=== PATIENT | male | born 1975 | race Caucasian/White ===

== ENCOUNTER → 2023-12-08 11:01 | Outpatient (REF) | payer BC, SELFPAY | LOC: DHCBC/DCA 11:01 | PROVIDERS: ATTENDING PHYSICIAN Nurse Practitioner Family | DX: R07.89 Other chest pain (principal); R06.09 Other forms of dyspnea; E78.2 Mixed hyperlipidemia; E11.9 Type 2 diabetes mellitus without complications | CPT/HCPCS: 78452; 93017; A9500; J2785 ==

== ENCOUNTER → 2023-12-14 10:34 | Outpatient (REF) | payer BC, SELFPAY ==
[2023-12-14 11:44] LABS: % Basophils 1.2 % (0-2); % Eosinophils 4.7 % (0-6); % Immature Granulocytes 0.2 % (0-0.5); % Lymphocytes 31.4 % (20.5-51.1); % Monocytes 9.1 % (1.7-9.3); % Neutrophils 53.4 % (42.2-75.2); Absolute Basophils 0.1 10^3/uL (0-0.2); Absolute Eosinophils 0.3 10^3/uL (0-0.7); Absolute Lymphocytes 1.8 10^3/uL (1.2-3.4); Absolute Monocytes 0.5 10^3/uL (0.1-0.6); Absolute Neutrophils 3.1 10^3/uL (1.4-6.5); Hematocrit 45.2 % (39.0-52.0); Hemoglobin 15.4 g/dL (13.0-18.0); Mean Corp Hgb Conc. 34.1 g/dL (33.0-37.0); Mean Corpuscular Hgb 29.7 pg (27.0-31.0); Mean Corpuscular Volume 87.3 fL (80.0-94.0); Mean Platelet Volume 11.5 fL (7.4-10.4); Nucleated Red Blood Cells % 0 % (-); Platelet Count 278 10^3/uL (130-400); Red Blood Cell Count 5.18 10^6/uL (4.70-6.10); Red Cell Dist. Width 12.5 % (11.5-14.5); White Blood Cell Count 5.8 10^3/uL (4.8-10.8)
[2023-12-14 12:11] LABS: Glycohemoglobin (HgbA1c) 6.8 % (4.0-5.6)
[2023-12-14 12:15] LABS: Urine Protein < 5 mg/dl
[2023-12-14 12:18] LABS: ALT (SGPT) 38 U/L (0-50); AST (SGOT) 36 U/L (17-59); Albumin 4.3 g/dl (3.5-5.0); Alkaline Phosphatase 80 U/L (38-126); Blood Urea Nitrogen 19 mg/dl (9-20); Calcium 10.1 mg/dl (8.4-10.2); Carbon Dioxide 23 mmol/L (22-30); Chloride 108 mmol/L (98-107); Glucose 139 mg/dl (70-99); HDL Cholesterol 43 mg/dl; LDL Cholesterol, Calculated 102 mg/dl; Potassium 4.7 mmol/L (3.5-5.1); Sodium 141 mmol/L (135-145); Total Bilirubin 0.6 mg/dl (0.2-1.3); Total Cholesterol 178 mg/dl (50-199); Triglyceride 169 mg/dl (10-149); Very Low Density Lipoprotein 33 mg/dl (0-30); eGFR > 60.00
[2023-12-14 12:31] LABS: CRP, Highly Sensitive 1.45 mg/L
[2023-12-14 12:47] LABS: TSH Reflex To Free T4 1.33 uIU/ml (0.47-4.68)
== END ==
LOC: REG 10:34
PROVIDERS: ATTENDING PHYSICIAN Nurse Practitioner Family
DX: E11.9 Type 2 diabetes mellitus without complications (principal); R07.89 Other chest pain; R06.09 Other forms of dyspnea; E78.2 Mixed hyperlipidemia; E66.01 Morbid (severe) obesity due to excess calories; E11.42 Type 2 diabetes mellitus with diabetic polyneuropathy
CPT/HCPCS: 36415; 80053; 80061; 82570; 83036; 84156; 84443; 85025; 86141

== ENCOUNTER 2023-12-17 16:03 | Day surgery (SDC) | payer BC, SELFPAY ==
[2023-12-17] VITALS (13 sets, daily range): BP systolic 118–170; BP diastolic 70–92; BMI 33.5
[2023-12-17 12:18] LABS: % Eosinophils 3.7 % (0-6); % Immature Granulocytes 0.3 % (0-0.5); % Lymphocytes 28.4 % (20.5-51.1); % Monocytes 8.8 % (1.7-9.3); % Neutrophils 57.8 % (42.2-75.2); Absolute Basophils 0.1 10^3/uL (0-0.2); Absolute Eosinophils 0.2 10^3/uL (0-0.7); Absolute Lymphocytes 1.7 10^3/uL (1.2-3.4); Absolute Monocytes 0.5 10^3/uL (0.1-0.6); Absolute Neutrophils 3.5 10^3/uL (1.4-6.5); Hematocrit 44.4 % (39.0-52.0); Mean Corp Hgb Conc. 33.8 g/dL (33.0-37.0); Mean Corpuscular Hgb 29.8 pg (27.0-31.0); Mean Corpuscular Volume 88.1 fL (80.0-94.0); Mean Platelet Volume 10.9 fL (7.4-10.4); Nucleated Red Blood Cells % 0 % (-); Platelet Count 279 10^3/uL (130-400); Red Blood Cell Count 5.04 10^6/uL (4.70-6.10); Red Cell Dist. Width 12.3 % (11.5-14.5)
[2023-12-17 12:33] LABS: ALT (SGPT) 45 U/L (0-50); AST (SGOT) 34 U/L (17-59); Albumin 4.1 g/dl (3.5-5.0); Alkaline Phosphatase 75 U/L (38-126); Blood Urea Nitrogen 20 mg/dl (9-20); Calcium 9.9 mg/dl (8.4-10.2); Carbon Dioxide 22 mmol/L (22-30); Chloride 109 mmol/L (98-107); Estimated Creatinine Clearance > 125 ml/min; Glucose 139 mg/dl (70-99); Potassium 4.4 mmol/L (3.5-5.1); Sodium 140 mmol/L (135-145); Total Bilirubin 0.7 mg/dl (0.2-1.3); Total Protein 6.7 g/dl (6.3-8.2); eGFR > 60.00
[2023-12-17] MEDS: LOW STRENGTH ASPIRIN 324 MG PO (12:42)
[2023-12-17 12:48] LABS: Troponin I < 0.012 ng/ml
--- NOTE | 2023-12-17 12:56 | ED.GENMED ---
History of Present Illness
General
Chief Complaint: Chest Pain
Source: patient
Exam Limitations: none
Time Seen by Provider: 12/17/23 11:57
Nursing documentation reviewed up to this point in time: agreed with
Travel History
Have you had any contact with someone who has COVID-19?: No
Do you have any symptoms of coronavirus? Fever > 100 degrees, chills, cough, shortness of breath, sore throat, loss of taste or smell, muscle aches, or headache?: No
History of Present Illness
History of Present Illness:
48 y/o M with h/ oHTN, HLD, ANXIETY, GERD
has had ongoign episodes of ches tpain
had stress test 12/07 and doesn't really understand the result
pt has not f/u with cards
woke up with worse left sided ches tpressure than usual with left arm tingling
feels slightly worse with deep breathing
midl sob
no nausea, vomiting, fever, chills, cough, leg swelling
Past History
Past History
ED Past Medical History: HTN, Psychiatric (Depression) and Other (Diverticulosis, Over active bladder syndrome)
ED Past Surgical History: Other ( endoscopy, colonoscopy)
Social History
Tobacco: Former smoker
Alcohol: None
Drug: None
Personal: Single
Living: with family
Employment: Employed
Review of Systems
Review of Systems
Allergies reviewed?: Yes
All Other Systems: Not applicable
Phy Exam
Physical Exam
Physical Exam:
GENERAL: Alert , in no apparent distress
EYE: pupils equal and reactive
NECK: Supple
ENT: o/p clr, mmm.
CARDIAC: Regular rate and rhythm .
LUNGS: Clear breath sounds bilaterally, no acute respiratory distress, no wheezes/rales/rhonchi
ABDOMEN: Soft, without focal tenderness, no r/g, no cvat, normal bowel sounds
NEUROLOGICAL: Alert and oriented, no focal neuro deficits
SKIN: Warm and dry, skin intact.
MUSCULOSKELETAL: No edema, well perfused. neg jeni's sign
PSYCH: Normal and appropriate interaction.
Scores
Heart Score for Chest Pain Patients
STEMI patient?: No
History: Moderately Suspicious
ECG: Nonspecific Repolarization
Age: </= 45 years
Risk Factors: 1 or 2 Risk Factors
Troponin: </= Normal Limit
Heart Score for Chest Pain Patients: 3
Heart Score Risk: 2.5% MACE over next 6 weeks
Course
Orders/Labs/Results
Orders:
Orders
12/17/23 Lunch
Cholesterol Lowering
At Your Request: Full Participation
Cholesterol Lowering: Sodium, 2 Gram
12/17/23 11:08
ECG [Electrocardiogram (*1)] Urgent
Reason for Study: Chest Pain
EKG- Treatment ONCE
12/17/23 12:07
Complete Blood Count/With Diff Urgent
Troponin I Urgent
12/17/23 12:08
Comprehensive Metabolic Panel Urgent
12/17/23 12:13
Aspirin Chewable [Low Strength Aspirin] 324 mg PO NOW STA
12/17/23 12:45
D-Dimer Urgent
12/17/23 14:18
Echo 2D MMode Color/Doppler Routine
Reason for Study: Chest pain
12/17/23 14:27
Nitroglycerin Sublingual [Nitrostat (Sublingual)] 0.4 mg SL NOW STA
Nitroglycerin Sublingual [Nitrostat (Sublingual)] 0.4 mg SL [id number] PRN
12/17/23 14:49
Famotidine [Pepcid] 20 mg IV NOW STA
MethylPREDNISolone PF [Solu-Medrol Pf] 125 mg IV NOW STA
12/17/23 14:53
0.9% Sodium Chloride [Nss (Preservative Free)] 8 ml IV NOW STA
12/17/23 15:07
Fentanyl Citrate/Pf [Sublimaze] 100 mcg .ROUTE .STK-MED ONE
Heparin 10,000 units .ROUTE .STK-MED ONE
Heparin 1000 Units/500 ml [Heparin] 1,000 units in 500 ml .ROUTE .STK-MED
Heparin Sodium,Porcine/Ns/Pf [Heparin 2000 Units/1000 ml] 2,000 unit in 1,000 ml .ROUTE .STK-MED
Lidocaine HCl/Pf [Xylocaine-Mpf 1% Vial] 50 mg .ROUTE .STK-MED ONE
Midazolam HCl [Versed] 2 mg .ROUTE .STK-MED ONE
Verapamil Injectable [Isoptin/Verapamil Injection] 5 mg .ROUTE .STK-MED ONE
12/17/23 15:08
Nitroglycerin [Tridil] 1,500 mcg .ROUTE .STK-MED ONE
12/17/23 15:19
Diphenhydramine [Benadryl] 50 mg .ROUTE .STK-MED ONE
Hydrocortisone Sod Succ [Solu-Cortef] 250 mg .ROUTE .STK-MED ONE
12/17/23 15:59
Acetaminophen [Tylenol] 650 mg PO Q4HPRN PRN
12/17/23 16:00
0.9% Sodium Chloride 1000 ml [Nss] 1,000 ml IV PER PROTOCOL
Infusion rate in mL/kg/hr:: 1.5
Infusion rate in mL/hr:: 187
Duration of infusion (hours):: 3
Activity As Directed
Activity Level: Out of Bed- Ad Fadumo
Activity Frequency: Ad Fadumo
Passenger Vessel Chef Procedure As Directed
Cardiac Cath Procedure: cardiac catheterization
Notify MD As Directed
Notify physician if: immediately for chest pain or bleeding from access site(s)
Radial Artery Hemostasis Method As Directed
Instructions:: 3 mL out at 1 hour post placement of band
3 mL out at 1 1/2 hours post placement of band
3 mL out at 2 hours post placement of band
Off at 2 1/2 hours post placement of band
If any oozing or hemotoma occurs:: re-inflate band and call provider
Site Checks As Directed
Check access site for bleeding/hematoma: Yes
Comment: on arrival, Q15min x4, Q30min x2, Q1 hr x2, Q2 hr x2, Q4 hr or per
protocol
Vascular Checks As Directed
Location: distal to access site - pulse check
Frequency: Other
Comment: on arrival, Q15min x4, Q30min x2, Q1 hr x2, Q2 hr x2, Q4 hr or per protocol
Vital Signs As Directed
Frequency: Other
Additional Instructions:: on arrival, Q15min x4, Q30min x2, Q1 hr x2, Q2 hr x2, then Q4 hr or per unit
protocol
12/17/23 16:02
VTE Contraindication Routine
VTE Mechanical Device Contraindication: Low Risk- LOS < 2 days
Pharmocologic Contraindication: Low Risk- LOS < 2 days
Risk assessment completed and pt is low risk: Yes
12/17/23 16:20
Discharge Patient As Directed
Discharge patient after: 7pm if rad site stable
12/17/23 16:30
Losartan [Cozaar] 100 mg PO NOW STA
Pantoprazole [Protonix] 40 mg PO NOW STA
12/17/23 17:00
Amlodipine [Norvasc] 2.5 mg PO DAILY
Escitalopram Oxalate [Lexapro] 10 mg PO DAILY
12/18/23 06:00
Basic Metabolic Panel IN AM
Complete Blood Count/No Diff IN AM
Abnormal Lab Results
12/17/23 12/17/23
12:07 12:08
MPV 10.9 H fL
(7.4-10.4)
Chloride 109 H mmol/L
(98-107)
Creatinine 0.6 L mg/dL
(0.7-1.3)
Glucose 139 H mg/dl
(70-99)
12/17/23 12:07
12/17/23 12:08
Vital Signs
Initial and Last Documented VS:
Initial Vital Signs
Pulse Resp BP Pulse Ox
49 18 155/87 98
12/17/23 11:08 12/17/23 11:08 12/17/23 11:08 12/17/23 11:08
Last Documented Vital Signs
Temp Pulse Resp BP Pulse Ox
98.1 F 72 16 139/76 96
12/17/23 19:46 12/17/23 19:45 12/17/23 19:46 12/17/23 19:12 12/17/23 19:46
MDM/Problems Addressed
Differential Diagnosis Includes:
GERD, acs, unstable agina
MDM/Problems Addressed:
48 y/o M with h/o HTN, HLD, gerd, anxiety
pt has had episodes of chest pain and was referred to cardiology after having a stress test on 12/07 bu thasn't been able to schedule an appointment
has had episodes of chest pain but wasn't sure if anxiety and that's why he ended up having stress test
pt woke up 930 am with worsening left ches tpain and L hand tingling which he doesn't normally have; not pleuritic, not exertional
ekg is sinus haja 40s which is typical for him, no st chagnes
trop was < 0.012
d/w head waiter contracts intern who will take pt to labor service representative
they aked he be admitted to hospitalist
*Critical Care Note
Total Time (30-74mins, 75-104mins- exclusive of procedures): Not Applicable
ED Attending Note
-
Portions of this chart may have been created with voice recognition software.� Occasional wrong word or��sound alike� substitutions may have occurred due to the inherent limitations of voice recognition software.
Discharge Plan
Departure
Patient Disposition: Admit
Date of Disposition: 12/17/23
Time of Disposition: 14:27
Admit to: Telemetry
Presentation/result/management discussed w/ accepting MD/DO: Hospitalist
Condition: Fair
Discharge Problem:
Chest pain
Interventions
Interventions:
*Risk Screen - Suicide Last Done: 12/17/23 11:12
*General Assessment Last Done: 12/17/23 12:03
*Neglect/Abuse Screening Last Done: 12/17/23 12:03
ED- Fall Risk Assessment Last Done: 12/17/23 12:03
*ED COVID-19 Vaccine History Last Done: 12/17/23 11:12
*Nursing Disposition Last Done: 12/17/23 15:58
ED- Cardiac Assessment Last Done: 12/17/23 12:03
Discharge Date and Time
Discharge Date/Time: 12/17/23 14:30
[2023-12-17 13:35] LABS: D-Dimer < 0.27 ug/mlFEU (0.00-0.50)
--- NOTE | 2023-12-17 14:16 | CON.CAR ---
Addendum entered and electronically signed by Aneesh Coelho MD 12/17/23 16:38:
I saw and examined the patient.
The OCCUPATIONAL THERAPY SPECIALIST's note was reviewed and I agree with the note.
Comment: 48-year-old who is coming in with accelerated angina. He tells us that over the last 2 weeks he was having typical anginal symptoms with chest tightness upon exertion relieved with rest. However this morning and yesterday it was happening
at shorter distances and this morning he even woke up with chest pain. He has been taking aspirin with some relief.
-Customs Compliance Specialist
-Risk factor modification
Original Note:
Consultation
Consultation Request
Date/Time Consultation Requested: 12/17/2023 13:50
Date/Time Consultation Performed: 12/17/2023 14:55
Requesting Provider: DAJUAN Marcelo
Performing Provider: DAJUAN Ibarra for Dr. Coelho
Reason for Consultation: Chest pain
Medical History
-
Chief Complaint: Chest pain
History of Present Illness:
Patient is a 48-year-old male (formerly known to Dr. Lyons), with bradycardia, dyslipidemia, type 2 diabetes mellitus, hypertension, and recent abnormal stress test who presented to the emergency department with a chief complaint of chest pain.
He recently had abnormal stress testing which was prompted by profuse diaphoresis and chest pressure while on his usual 2 mile walk. He also endorsed feeling very unwell. The symptoms would resolve with rest. This morning at approximately 9:30 AM
chest heaviness woke him up from his sleep. At that time was 6/10 in severity. The pressure radiated down his left arm and into his hand. He endorses left hand numbness. It is currently 4/10 in severity. It is midsternal and anterior not
currently radiating.
Past Medical History
Past Medical History: HTN, Hypercholesterolemia and NIDDM
Social History
Tobacco: Former Smoker
Alcohol: None (No EtOH since having issues with chest pressure.)
Drug: None
Personal: Single
Living: With Family
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
Family History
Family History: Early CAD (Father currently with CAD in his 50s.) and Other (Mother due to liver cancer.)
Allergies / Home Medications
Allergy/AdvReac Type Severity Reaction Status Date / Time
bee venom protein (honey bee) Allergy Swelling Verified 08/21/20 15:04
iodine Allergy sneezing Verified 08/21/20 15:04
with cat
scan dye
[id number] - Not Allergy Unknown Unknown Uncoded 08/21/20 15:04
Converted 93. See Text.
�Medication �Instructions �Recorded �Confirmed �Type
escitalopram oxalate 10 mg tablet 10 mg PO DAILY 01/29/19 01/29/19 History
losartan 50 mg tablet 100 mg PO DAILY 01/29/19 01/29/19 History
oxybutynin chloride 10 mg 15 mg PO DAILY 01/29/19 01/29/19 History
tablet,extended release 24 hr
(Ditropan XL)
Review of Systems
-
History Source: Patient
All other systems: Negative unless noted
Respiratory: No Symptoms
Cardiac: Chest Pain
Abdomen/GI: No Symptoms
Physical Exam
Vital Signs
Temp Pulse Resp BP Pulse Ox
98.3 F 55 20 133/80 95
12/17/23 11:15 12/17/23 13:30 12/17/23 13:30 12/17/23 13:00 12/17/23 13:15
Lab Results
12/17/23 12:07
12/17/23 12:08
Troponin I < 0.012 ng/ml 12/17/23 12:07
Physical Exam
General: Well Developed, Well Nourished, No Apparent Distress and Comfortable
HEENT: Normocephalic, Anicteric and Moist Mucous Membranes
Respiratory: Clear
Cardiac: S1/S2 and Regular Rhythm; Negative Peripheral Edema
Breast: Deferred by me
GI: Soft, Non Tender, Non Distended and Normal Bowel Sounds
Rectal: Deferred by Provider
Genito-urinary: No Costovertebral Tender
Musculoskeletal: No Clubbing, No Cyanosis and No Edema
Skin: Warm and Dry
Neuro: AO x 3
Hematologic/Lymphatic: No Lymphadenopathy
Psych: Calm
Impression / Plan
-
Accelerating angina
-Currently having 4/10 chest pain, sublingual nitro ordered
-Troponin <0.012
-He received ASA 324 mg in the ER
-Recent stress testing (12/08/2023) with reversible defect in basal anterior, mid anterior, apical anterior, and apex segments consistent with ischemia with small degree of infarct versus ischemia
-N.p.o., cardiac catheterization today
-Echocardiogram
Bradycardia, chronic, stable, follow telemetry
HTN, stable, his PCP recently added amlodipine 2.5 mg to his losartan 100 mg daily
Dyslipidemia
-12/14/2023 TC 178, HDL 43, LDL 102, TG 169 -> rosuvastatin increased to 20mg daily
NIDDM, Hgba1c 6.4%, per primary
Fatty liver disease
Former smoker, continued cessation recommended
Data Reviewed
-
EKG: Report Reviewed by me (Sinus bradycardia, intraventricular conduction delay, rate 43)
Medical Tests (Nuc Med, Echo etc): Report Reviewed by me (Stress test as above)
Labs: Labs Reviewed by me
Old Records: Reviewed (Outpatient PCP note)
--- NOTE | 2023-12-17 15:57 | ITS.CL.CATH ---
Diesel Technology Instructor - Catheterization
Cardiac Catheterization
Procedure Report:
CARDIAC CATHETERIZATION REPORT
Date of Procedure: 12/17/2023
Referring: Aneesh Coelho M.D.
INDICATION: Abnormal stress test, resting chest pain.
PROCEDURE:
1. Left heart catheterization.
2. Coronary angiography.
ACCESS:
6 [place] right radial artery.
CATHETERS:
1. 5 [place] JR4.
2. 5 [place] JL 3.5.
Believe
HEMODYNAMIC DATA
Weight (kg): 124.3
AO (s/d/x, mmHg): 136/82/106
LV (s/x mmHg): 140/15
LEFT VENTRICULOGRAPHY: Not performed.
CORONARY ANGIOGRAPHY
Dominance: Right.
Left Main: Normal size, bifurcating vessel. There is no coronary artery disease.
LAD: Normal size vessel giving rise to 2 significant diagonals. There are minor luminal irregularities.
Ramus: Congenitally absent.
Circumflex: Large size, nondominant vessel giving rise to 1 significant obtuse marginal. There is no coronary artery disease.
RCA: Normal size, dominant vessel. There is no coronary artery disease.
INTERVENTION(S)
None.
Closure Device: Vascular band.
Radiation (mGy): 615.01
DAP (cm2.Gy): 50.7179
Fluoroscopy time (minutes): 2.9
Sedation time (minutes): 23
CONCLUSIONS
1. Right dominant circulation with minor luminal irregularities in the LAD.
2. Top normal filling pressures (LVEDP = 15 mmHg at 124.3 kg).
RECOMMENDATIONS:
1. Expectant management after cardiac catheterization via right radial approach.
2. Limited weight bearing on the right wrist for one week.
3. Continue evaluation for other sources of chest pain including endothelial dysfunction versus esophageal spasm/GERD.
4. 2-week trial of PPI.
5. Stable for outpatient follow-up.
Copy to: Aneesh Coelho M.D., Luis Fernando Martinez D.O.
Jaylen Ballard DO, FACC, FACP
--- NOTE | 2023-12-17 16:27 | PTCARENOTE ---
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 patient is concerned that he is still having pain. patient did not take any of his home medications today. monitor shows sinus haja, VSS. right R band intact, distal pulse
weak but palpable. TT Jillian Gan NP.aware of CP.
--- NOTE | 2023-12-17 16:46 | PTCARENOTE ---
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
[2023-12-17] MEDS: COZAAR 100 MG PO (16:52)
[2023-12-17] MEDS: PROTONIX 40 MG PO (16:52)
[2023-12-17] MEDS: NORVASC 2.5 MG PO (16:52)
[2023-12-17] MEDS: LEXAPRO 10 MG PO (16:52)
[2023-12-17] MEDS: PEPCID 20 MG IV (16:54)
[2023-12-17] MEDS: NITROSTAT (SUBLINGUAL) 0.400000000000000022 MG SL (16:54)
[2023-12-17] MEDS: SOLU-MEDROL PF 125 MG IV (16:54)
[2023-12-17] MEDS: NSS (PRESERVATIVE FREE) 8 ML IV (16:54)
--- NOTE | 2023-12-17 16:56 | W.DS.TRANS ---
DC Summary - Tool Procurement Coordinator
-
Discharge Instructions:
Discharge Diagnosis/Procedures Cardiac cath
Diet Low Cholesterol
Driving Restrictions No driving for 24 hours
Instructions:
Stand-Alone Forms: DC Instructions- Cath/EP Lab
Return to Work
Changes to Home Medications: Yes
Discharge Medications:
DC Medications w/original date entered in [employer]
escitalopram oxalate 10 mg tablet 10 mg PO DAILY 01/29/19
losartan 50 mg tablet 100 mg PO DAILY 01/29/19
oxybutynin chloride 10 mg tablet,extended release 24 hr (Ditropan XL) 15 mg PO DAILY 01/29/19
amlodipine 2.5 mg tablet 2.5 mg PO DAILY #1 tab 12/17/23
metformin 1,000 mg tablet 1,000 mg PO HS 12/17/23
pantoprazole 40 mg tablet,delayed release (Protonix) 40 mg PO DAILY #30 tabs 12/17/23
rosuvastatin 10 mg tablet 10 mg PO DAILY 12/17/23
Home Medication Changes
new to protonix
Pending Results: Yes
Additional Pending Results:
echo final read
--- NOTE | 2023-12-17 17:51 | PTCARENOTE ---
patient has received all his medication as ordered ,mother is at bedside, patient stating that the discomfort in chest is a 3 out of 10,nonradiating. patient stated, 'I feel calmer'. patient is eating dinner.
--- NOTE | 2023-12-17 21:37 | PTCARENOTE ---
Late note: SR on the monitor in the 70's. Stated his chest discomfort is a #2 when questioned. vss. Received all discharge instructions and verbalized understanding. INT's removed with jelco intact. All questions answered. Patient discharged via w/c
and staff escort to the care of a family member.
== END 2023-12-17 20:00 | disposition home or self-care (01) ==
LOC: CATH 16:03
PROVIDERS: Physician Assistant; ATTENDING PHYSICIAN Internal Medicine Cardiovascular Disease; EMERGENCY PHYSICIAN Emergency Medicine; FAMILY PHYSICIAN Internal Medicine
DX: R07.9 Chest pain, unspecified (principal); R94.39 Abnormal result of other cardiovascular function study; I10 Essential (primary) hypertension; E78.00 Pure hypercholesterolemia, unspecified; K21.9 Gastro-esophageal reflux disease without esophagitis; E11.9 Type 2 diabetes mellitus without complications; F41.9 Anxiety disorder, unspecified; Z87.891 Personal history of nicotine dependence; Z79.84 Long term (current) use of oral hypoglycemic drugs
CPT/HCPCS: 80053; 84484; 85025; 85379; 93005; 93306; 93458; 96374; 99285; C1894

== ENCOUNTER → 2024-01-13 11:06 | Outpatient (REF) | payer BC, SELFPAY ==
[2024-01-13 14:05] LABS: Urine Albumin Negative (Neg - Trace); Urine Bilirubin Negative (Negative); Urine Character Clear (Clear); Urine Color Yellow; Urine Glucose Negative (Negative); Urine Ketone Negative (Negative); Urine Leukocyte Negative (Negative); Urine Nitrite Negative (Negative); Urine Occult Blood Negative (Negative); Urine Specific Gravity 1.025 (<1.030); Urine Urobilinogen Negative (Neg - 1+)
== END ==
LOC: REG 11:06
PROVIDERS: ATTENDING PHYSICIAN Specialist
DX: N39.0 Urinary tract infection, site not specified (principal)
CPT/HCPCS: 81003; 87086

== ENCOUNTER → 2024-02-05 09:23 | Outpatient (REF) | payer BC, SELFPAY | LOC: DHSLP 09:23 | PROVIDERS: ATTENDING PHYSICIAN Internal Medicine | DX: G47.33 Obstructive sleep apnea (adult) (pediatric) (principal); G47.31 Primary central sleep apnea; G47.61 Periodic limb movement disorder; G47.00 Insomnia, unspecified | CPT/HCPCS: 95810 ==

== ENCOUNTER → 2024-03-10 12:42 | Outpatient (REF) | payer BC, SELFPAY | LOC: CLAB 12:42 | PROVIDERS: ATTENDING PHYSICIAN Specialist | DX: N39.0 Urinary tract infection, site not specified (principal) | CPT/HCPCS: 87070; 87086 ==

== ENCOUNTER 2024-04-19 06:34 | Outpatient (RCR) | payer BC, SELFPAY | END 2024-04-19 23:59 | disposition home or self-care (01) | LOC: RPT 06:34 | PROVIDERS: ATTENDING PHYSICIAN Specialist; FAMILY PHYSICIAN Internal Medicine | DX: R10.2 Pelvic and perineal pain (principal); R35.0 Frequency of micturition; R39.15 Urgency of urination; Z73.6 Limitation of activities due to disability; N32.81 Overactive bladder | CPT/HCPCS: 36415; 80053; 80061; 81003; 83036; 84153; 85025; 97110; 97161; 97530 ==

== ENCOUNTER 2024-05-26 09:59 | Outpatient (RCR) | payer BC, SELFPAY | END 2024-05-26 23:59 | disposition home or self-care (01) | LOC: RPT 09:59 | PROVIDERS: ATTENDING PHYSICIAN Specialist; FAMILY PHYSICIAN Internal Medicine | DX: R35.0 Frequency of micturition (principal); R39.15 Urgency of urination; R10.2 Pelvic and perineal pain; Z73.6 Limitation of activities due to disability | CPT/HCPCS: 97110 ==

== ENCOUNTER 2024-09-26 16:11 | Outpatient (RCR) | payer BC, SELFPAY | END 2024-09-26 23:59 | disposition home or self-care (01) | LOC: RPT 16:11 | PROVIDERS: ATTENDING PHYSICIAN Specialist; FAMILY PHYSICIAN Internal Medicine | DX: R35.0 Frequency of micturition (principal); R39.15 Urgency of urination; R10.2 Pelvic and perineal pain; Z73.6 Limitation of activities due to disability; M62.81 Muscle weakness (generalized) | CPT/HCPCS: 97110; 97530 ==

== ENCOUNTER 2024-10-11 11:20 | Emergency (ER) | payer BC, SELFPAY ==
[2024-10-11 11:24] VITALS: BP 159/86
[2024-10-11 11:48] LABS: % Basophils 1.1 % (0-2); % Eosinophils 3.2 % (0-6); % Immature Granulocytes 0.4 % (0-0.5); % Lymphocytes 28.6 % (20.5-51.1); % Neutrophils 58.7 % (42.2-75.2); Absolute Basophils 0.1 10^3/uL (0-0.2); Absolute Eosinophils 0.2 10^3/uL (0-0.7); Absolute Lymphocytes 1.6 10^3/uL (1.2-3.4); Absolute Monocytes 0.5 10^3/uL (0.1-0.6); Absolute Neutrophils 3.3 10^3/uL (1.4-6.5); Hematocrit 43.2 % (39.0-52.0); Hemoglobin 15.1 g/dL (13.0-18.0); Mean Corpuscular Volume 85.7 fL (80.0-94.0); Mean Platelet Volume 10.4 fL (7.4-10.4); Nucleated Red Blood Cells % 0 % (-); Platelet Count 293 10^3/uL (130-400); Red Blood Cell Count 5.04 10^6/uL (4.70-6.10); Red Cell Dist. Width 12.3 % (11.5-14.5); White Blood Cell Count 5.7 10^3/uL (4.8-10.8)
[2024-10-11 11:54] VITALS: BP 142/80
[2024-10-11 12:00] VITALS: BP 146/81
[2024-10-11 12:03] LABS: ALT (SGPT) 45 U/L (0-50); AST (SGOT) 30 U/L (17-59); Alkaline Phosphatase 93 U/L (38-126); Blood Urea Nitrogen 14 mg/dl (9-20); Calcium 9.9 mg/dl (8.4-10.2); Carbon Dioxide 21 mmol/L (22-30); Chloride 108 mmol/L (98-107); Glucose 215 mg/dl (70-99); Potassium 4.4 mmol/L (3.5-5.1); Sodium 136 mmol/L (135-145); Total Bilirubin 0.5 mg/dl (0.2-1.3); Total Protein 6.7 g/dl (6.3-8.2); eGFR > 60.00
[2024-10-11 12:14] LABS: Troponin I < 0.012 ng/ml
--- NOTE | 2024-10-11 12:26 | ED.GENMED ---
History of Present Illness
General
Chief Complaint: Chest Pain
Source: patient
Exam Limitations: none
Time Seen by Provider: 10/11/24 12:10
Nursing documentation reviewed up to this point in time: agreed with
History of Present Illness
History of Present Illness:
48-year-old male diabetic, social drinker, presents with chest pain similar to his reflux yesterday was the onset got better with Tums and returned today took some Tums feeling better previously admitted with chest pain cardiac cath reports of which
have reviewed, not currently on any antacids, pain did not go into his back or jaw, less severe than his prior episode requiring cardiac cath
Past History
Past History
ED Past Medical History: HTN, Psychiatric (Depression) and Other (Diverticulosis, Over active bladder syndrome)
ED Past Surgical History: Other ( endoscopy, colonoscopy)
Social History
Tobacco: Former smoker
Alcohol: Occasional
Drug: None
Personal: Single
Living: with family
Employment: Employed
Family History
Family History: Diabetes
Review of Systems
Review of Systems
All Other Systems: Not applicable
Constitutional: Denies fever or fatigue
Respiratory: Reports no symptoms; Denies trouble breathing
Cardiac: Reports chest pain
ABD/GI: Denies abdominal pain, nausea, vomiting or diarrhea
: Reports no symptoms
Musculoskeletal: Reports no symptoms
Endocrine: Reports no symptoms
Hematologic/Lymphatic: Reports no symptoms
Phy Exam
Physical Exam
Physical Exam:
Physical Exam
General: no apparent distress, not acutely ill
Neck: No jaundice
Heart: s1/s2 regular rate and rhythm, no murmur. equal radial pulses.
Lungs: no acute respiratory distress. clear bilaterally
Abdomen: Soft nontender
Neuro: alert and oriented. no focal neurological deficits
Skin: no rash
Psychiatric: well kept. interactive and cooperative
Extremities: no edema. no calf tenderness.
Scores
Heart Score for Chest Pain Patients
STEMI patient?: No
History: Slightly or Non-Suspicious
ECG: Nonspecific Repolarization
Age: </= 45 years
Risk Factors: 1 or 2 Risk Factors
Troponin: </= Normal Limit
Heart Score for Chest Pain Patients: 2
Heart Score Risk: 2.5% MACE over next 6 weeks
Course
Orders/Labs/Results
Orders:
Orders
10/11/24 11:21
ECG [Electrocardiogram (*1)] Urgent
Reason for Study: Chest Pain
EKG- Treatment ONCE
10/11/24 11:41
Complete Blood Count/With Diff Urgent
Comprehensive Metabolic Panel Urgent
Lipase Urgent
Comment: ADD ON
Troponin I Urgent
10/11/24 12:22
Add On- LAB Urgent
Tests Added?: lipase
Mag Hydrox/Al Hydrox/Simeth [Maalox] 30 ml Phenobarb/Hyoscy/Atropine/Scop [] 10 ml Viscous Lidocaine 2% [Xylocaine Viscous Cup] 10 ml PO NOW
Pantoprazole [Protonix] 40 mg PO NOW STA
10/11/24 12:29
Mag Hydrox/Al Hydrox/Simeth [Maalox] 30 ml .ROUTE .STK-MED ONE
Phenobarb/Hyoscy/Atropine/Scop [] 10 ml .ROUTE .STK-MED ONE
10/11/24 12:30
Viscous Lidocaine 2% [Xylocaine Viscous Cup] 15 ml .ROUTE .STK-MED ONE
Abnormal Lab Results
10/11/24
11:41
Chloride 108 H mmol/L
(98-107)
Carbon Dioxide 21 L mmol/L
(22-30)
Creatinine 0.6 L mg/dL
(0.7-1.3)
Glucose 215 H mg/dl
(70-99)
10/11/24 11:41
03/12/25 11:41
Vital Signs
Initial and Last Documented VS:
Initial Vital Signs
Temp Pulse BP Pulse Ox
97.8 F 56 159/86 97
10/11/24 11:24 10/11/24 11:24 10/11/24 11:24 10/11/24 11:24
Last Documented Vital Signs
Temp Pulse Resp BP Pulse Ox
97.8 F 73 19 125/79 96
10/11/24 11:24 10/11/24 13:45 10/11/24 13:45 10/11/24 13:08 10/11/24 13:45
MDM/Problems Addressed
Differential Diagnosis Includes:
Reflux pancreatitis ACS muscular doubt PE
MDM/Problems Addressed:
Chest pain
Chronic conditions affecting care:
Reflux
Chronic conditions affecting care: DM
Acute Exacerbation and/or Progression of Chronic Illness: DM
*Pulse Oximetry
Patient hypoxic: no
*EKG
Interpreted by ED Provider?: Yes
Interpretation: abnormal
Comparison EKG: no changes
Heart Rate: 78
Rate: normal
Rhythm: sinus
Ischemia: T-wave inversion
*Composite Layup Worker Interpretation
Rate: normal
Interpretation: normal
Heart Rate: 78
Rhythm: sinus
*Critical Care Note
Total Time (30-74mins, 75-104mins- exclusive of procedures): Not Applicable
Data Reviewed
Review of Other/Old Records Reveals: Labs and Operative Reports (Cath report)
Source: patient
Update Note
Update Note:
2:15 PM patient improved looks well undetectable troponin
ED Attending Note
-
Portions of this chart may have been created with voice recognition software.� Occasional wrong word or��sound alike� substitutions may have occurred due to the inherent limitations of voice recognition software.
Discharge Plan
Departure
Patient Disposition: Home (Routine Discharge)
Date of Disposition: 10/11/24
Time of Disposition: 14:16
Patient with high blood pressure during this ER visit?: No
Condition: Good
Discharge Problem:
Chest pain
Instructions: Acid Reflux and GERD in Adults (DC), Chest Pain PCP Follow Up
Prescriptions:
New
pantoprazole [Protonix] 40 mg tablet,delayed release (DR/EC)
40 mg PO DAILY Qty: 90 6RF
No Action
losartan 50 MG tablet
100 mg PO DAILY
oxybutynin chloride [Ditropan XL] 10 MG tablet extended release 24hr
15 mg PO DAILY
escitalopram oxalate 10 MG tablet
10 mg PO DAILY
metformin 1,000 mg Tablet
1,000 mg PO HS
rosuvastatin 10 mg Tablet
10 mg PO DAILY
pantoprazole [Protonix] 40 mg tablet,delayed release (DR/EC)
40 mg PO DAILY Qty: 30 2RF
amlodipine 2.5 mg tablet
2.5 mg PO DAILY Qty: 1 0RF
Referrals:
Luis Fernando Martinez DO [Family Provider] -
Interventions
Interventions:
*Risk Screen - Suicide Last Done: 10/11/24 11:27
*Neglect/Abuse Screening Last Done: 10/11/24 11:27
*ED COVID-19 Vaccine History Last Done: 10/11/24 11:27
ED- Cardiac Assessment Last Done: 10/11/24 11:45
Discharge Date and Time
Print Language: UKRAINIAN
[2024-10-11] MEDS: MAALOX 50 PO (12:33)
[2024-10-11] MEDS: PROTONIX 40 MG PO (12:33)
[2024-10-11 13:08] VITALS: BP 125/79
[2024-10-11 13:22] LABS: Lipase 69 U/L (23-300)
[2024-10-11 14:00] VITALS: BP 137/82
== END 2024-10-11 14:51 | disposition home or self-care (01) ==
LOC: EMR 11:20
PROVIDERS: Emergency Medicine; EMERGENCY PHYSICIAN Emergency Medicine; FAMILY PHYSICIAN Internal Medicine
DX: R07.9 Chest pain, unspecified (principal); I10 Essential (primary) hypertension; E11.9 Type 2 diabetes mellitus without complications; Z87.891 Personal history of nicotine dependence; K21.9 Gastro-esophageal reflux disease without esophagitis
CPT/HCPCS: 99284; 80053; 83690; 84484; 85025; 93005

== ENCOUNTER 2024-12-05 12:03 | Outpatient (RCR) | payer BC, SELFPAY | END 2024-12-05 23:59 | disposition home or self-care (01) | LOC: RPT 12:03 | PROVIDERS: ATTENDING PHYSICIAN Specialist; FAMILY PHYSICIAN Internal Medicine | DX: R35.0 Frequency of micturition (principal); R39.15 Urgency of urination; R10.2 Pelvic and perineal pain; Z73.6 Limitation of activities due to disability; M62.81 Muscle weakness (generalized) | CPT/HCPCS: 97110; 97140 ==

== ENCOUNTER → 2024-12-05 13:30 | Outpatient (REF) | payer BC, SELFPAY ==
[2024-12-05 15:02] LABS: Urine Albumin 2+ (Neg - Trace); Urine Bilirubin Negative (Negative); Urine Character Clear (Clear); Urine Glucose 2+ (Negative); Urine Ketone Negative (Negative); Urine Leukocyte Negative (Negative); Urine Nitrite Negative (Negative); Urine Occult Blood 1+ (Negative); Urine Specific Gravity 1.025 (<1.030); Urine Urobilinogen Negative (Neg - 1+)
[2024-12-05 15:34] LABS: Urine Red Blood Cell 0-2 /HPF (0-2); Urine White Cell 0-2 /HPF (0-5)
== END ==
LOC: REG 13:30
PROVIDERS: ATTENDING PHYSICIAN Specialist; FAMILY PHYSICIAN Internal Medicine
DX: N39.0 Urinary tract infection, site not specified (principal)
CPT/HCPCS: 81003; 81015; 87086

== ENCOUNTER → 2025-01-30 14:28 | Outpatient (REF) | payer BC, SELFPAY | LOC: CLAB 14:28 | PROVIDERS: ATTENDING PHYSICIAN Specialist | DX: R35.0 Frequency of micturition (principal) | CPT/HCPCS: 88112 ==

== ENCOUNTER 2025-02-21 14:19 | Outpatient (RCR) | payer BC, SELFPAY | END 2025-02-21 23:59 | disposition home or self-care (01) | LOC: RPT 14:19 | PROVIDERS: ATTENDING PHYSICIAN Specialist; FAMILY PHYSICIAN Internal Medicine | DX: R35.0 Frequency of micturition (principal); R39.15 Urgency of urination; R10.2 Pelvic and perineal pain; Z73.6 Limitation of activities due to disability; M62.81 Muscle weakness (generalized) | CPT/HCPCS: 97110; 97140; 97530 ==

== ENCOUNTER 2025-03-07 11:58 | Outpatient (RCR) | payer BC, SELFPAY | END 2025-03-07 23:59 | disposition home or self-care (01) | LOC: RPT 11:58 | PROVIDERS: ATTENDING PHYSICIAN Specialist; FAMILY PHYSICIAN Internal Medicine | DX: R35.0 Frequency of micturition (principal); R39.15 Urgency of urination; R10.2 Pelvic and perineal pain; Z73.6 Limitation of activities due to disability; M62.81 Muscle weakness (generalized) | CPT/HCPCS: 97110; 97140; 97530 ==

== ENCOUNTER 2025-04-24 12:08 | Outpatient (RCR) | payer BC, SELFPAY | END 2025-04-24 23:59 | disposition home or self-care (01) | LOC: RPT 12:08 | PROVIDERS: ATTENDING PHYSICIAN Specialist; FAMILY PHYSICIAN Internal Medicine | DX: R35.0 Frequency of micturition (principal); R39.15 Urgency of urination; R10.2 Pelvic and perineal pain; Z73.6 Limitation of activities due to disability; M62.81 Muscle weakness (generalized) | CPT/HCPCS: 97110; 97140 ==